=== PATIENT | female | born 1990 | race Caucasian/White ===

== ENCOUNTER 2017-11-02 23:22 | Emergency (ER) | payer MEDICAID, OTHER | END 2017-11-03 00:05 | disposition home or self-care (01) | LOC: FTE 23:22 | DX: R23.8 Other skin changes (principal); Z87.891 Personal history of nicotine dependence | CPT/HCPCS: 99283; Z7502 ==

== ENCOUNTER 2018-06-30 08:27 | Inpatient (IN) | payer SELFPAY, MEDICAID ==
[2018-06-30 09:08] LABS: ADD MAN DIFF? NO
[2018-06-30 09:11] LABS: BASOPHIL # 0.1 10^3/ul (0.0-0.1); BASOPHILS % 0.3 % (0.0-2.0); HEMATOCRIT 38.2 % (37.0-47.0); HEMOGLOBIN 12.8 g/dl (12.0-16.0); LYMPHOCYTES # 1.4 10^3/ul (0.8-2.9); MEAN CORPUSCULAR HGB CONC 33.5 g/dl (32.0-37.0); MEAN CORPUSCULAR VOLUME 89.5 fl (82.0-101.0); MEAN PLATELET VOLUME 9.9 fl (7.4-10.4); MONOCYTE # 0.9 10^3/ul (0.3-0.9); MONOCYTES % 5.4 % (0.0-11.0); NEUTROPHIL # 13.2 10^3/ul (1.6-7.5); NEUTROPHILS % 84.6 % (39.0-77.0); PLATELET COUNT 332 10^3/UL (140-415); RED BLOOD COUNT 4.27 10^6/ul (4.20-5.40); RED CELL DISTRIBUTION WIDTH 12.4 % (11.5-14.5)
[2018-06-30 09:11] LABS: WHITE BLOOD COUNT 15.6 10^3/ul (4.8-10.8)
[2018-06-30] MEDS: KETOROLAC 30 MG INJ IV (09:21)
[2018-06-30] MEDS: ONDANSETRON 4 MG INJ IV (09:21)
[2018-06-30] MEDS: SOD CHLORIDE 0.9% 1,000 ML IV (09:21)
[2018-06-30 09:27] LABS: ADD UMIC NO; UR ASCORBIC ACID 20 mg/dL (NEGATIVE); UR BILIRUBIN (Dip) NEGATIVE (NEGATIVE); UR BLOOD (Dip) NEGATIVE (NEGATIVE); UR CLARITY SLIGHTLY CLOUDY (CLEAR); UR COLOR YELLOW (YELLOW); UR GLUCOSE (Dip) NEGATIVE (NEGATIVE); UR KETONES (Dip) 1+ mg/dL (NEGATIVE); UR LEUKOCYTE ESTERASE (Dip) NEGATIVE Leu/ul (NEGATIVE); UR MUCUS MANY /HPF (NONE SEEN); UR NITRITE (Dip) NEGATIVE (NEGATIVE); UR RBC 1 /HPF (0-5); UR SPECIFIC GRAVITY (Dip) 1.018 (1.003-1.030); UR SQUAMOUS EPITHELIAL CELL FEW /HPF (FEW); UR TOTAL PROTEIN (Dip) NEGATIVE (NEGATIVE); UR UROBILINOGEN (Dip) NEGATIVE (NEGATIVE); UR WBC 1 /HPF (0-5)
[2018-06-30 09:31] LABS: ALANINE AMINOTRANSFERASE 21 IU/L (13-69); ALBUMIN 4.7 g/dl (3.3-4.9); ALBUMIN/GLOBULIN RATIO 1.51; ALKALINE PHOSPHATASE 84 IU/L (42-121); ANION GAP 12 (5-13); ASPARTATE AMINO TRANSFERASE 23 IU/L (15-46); BILIRUBIN,INDIRECT 0.9 mg/dl (0-1.1); BILIRUBIN,TOTAL 0.9 mg/dl (0.2-1.3); BLOOD UREA NITROGEN 14 mg/dl (7-20); CALCIUM 9.4 mg/dl (8.4-10.2); CARBON DIOXIDE 24 mmol/L (21-31); CHLORIDE 105 mmol/L (97-110); CREATININE 0.67 mg/dl (0.44-1.00); Estimated GFR > 60 mL/min (>60); GLUCOSE 118 mg/dl (70-220); LIPASE 66 U/L (23-300); POTASSIUM 4.1 mmol/L (3.5-5.1); SODIUM 141 mmol/L (135-144); TOTAL PROTEIN 7.8 g/dl (6.1-8.1)
[2018-06-30] MEDS: IOHEXOL 300MG/ML 150 ML BTL (10:47)
[2018-06-30] MEDS: SOD CHLORIDE 0.9% 100 ML (10:48)
[2018-06-30] MEDS: morphine 4 MG/ML VIAL IV (11:49)
[2018-06-30] MEDS ORDERED: NACL 0.9% 3 ML SYG IV (12:30)
[2018-06-30] MEDS ORDERED: ACETAMINOPHEN 325 MG TAB PO ×2 (12:30)
[2018-06-30] MEDS ORDERED: ONDANSETRON 4 MG INJ IV ×2 (12:30)
[2018-06-30] MEDS: DEXTROSE 5%-0.45% NACL 1,000 ML IV (15:46)
[2018-06-30 16:39] LABS: HEMATOCRIT 28.3 % (37.0-47.0); HEMOGLOBIN 9.5 g/dl (12.0-16.0)
[2018-06-30] MEDS: morphine 2 MG INJ IV (17:56)
[2018-06-30 19:27] LABS: ADD MAN DIFF? NO
[2018-06-30 19:30] LABS: BASOPHILS % 0.3 % (0.0-2.0); EOSINOPHILS % 0.1 % (0.0-7.0); HEMATOCRIT 26.2 % (37.0-47.0); HEMOGLOBIN 8.7 g/dl (12.0-16.0); LYMPHOCYTES # 2.4 10^3/ul (0.8-2.9); LYMPHOCYTES % 19.8 % (15.0-51.0); MEAN CORPUSCULAR HGB CONC 33.2 g/dl (32.0-37.0); MEAN CORPUSCULAR VOLUME 90.3 fl (82.0-101.0); MEAN PLATELET VOLUME 10.1 fl (7.4-10.4); MONOCYTES % 8.3 % (0.0-11.0); NEUTROPHIL # 8.5 10^3/ul (1.6-7.5); PLATELET COUNT 236 10^3/UL (140-415); RED CELL DISTRIBUTION WIDTH 12.5 % (11.5-14.5)
[2018-06-30] MEDS: HYDROCODONE/APAP (5/325) TAB PO (19:33)
[2018-06-30] MEDS: FAMOTIDINE 20 MG INJ IV (21:53)
[2018-06-30 22:06] LABS: HEMATOCRIT 24.9 % (37.0-47.0); HEMOGLOBIN 8.4 g/dl (12.0-16.0)
[2018-07-01] MEDS: DEXTROSE 5%-0.45% NACL 1,000 ML IV ×2 (02:05→13:34)
[2018-07-01 06:38] LABS: HEMATOCRIT 22.4 % (37.0-47.0); HEMOGLOBIN 7.6 g/dl (12.0-16.0)
[2018-07-01] MEDS: FAMOTIDINE 20 MG INJ IV ×2 (09:00→20:29)
[2018-07-01] MEDS ORDERED: ROPIVACAINE 0.5 % 30 ML VIAL (10:26)
[2018-07-01] MEDS ORDERED: MIDAZOLAM 1 MG/ML 2 ML INJ (10:27)
[2018-07-01] MEDS ORDERED: FENTAnyl 50 MCG/ML VIAL (10:27)
[2018-07-01 10:58] LABS: IMMEDIATE SPIN CROSSMATCH 1 2
[2018-07-01] MEDS ORDERED: HYDROmorphONE 1 MG/5 ML IV SYRINGE IV ×2 (12:00)
[2018-07-01] MEDS ORDERED: OXYCODONE/ACETAMINOPHEN (5/325) TAB PO ×2 (12:00→12:30)
[2018-07-01] MEDS ORDERED: DIPHENHYDRAMINE 50 MG INJ IV (12:00)
[2018-07-01] MEDS ORDERED: EPHEDrine SULFATE 50 MG/5 ML SYG IV (12:00)
[2018-07-01] MEDS ORDERED: METOCLOPRAMIDE 10 MG INJ IV (12:00)
[2018-07-01] MEDS ORDERED: FENTAnyl 50 MCG/ML VIAL IV ×3 (12:00)
[2018-07-01] MEDS ORDERED: MEPERIDINE 25 MG INJ IV (12:00)
[2018-07-01] MEDS ORDERED: ONDANSETRON 4 MG INJ IV (12:00)
[2018-07-01 12:39] LABS: ADD MAN DIFF? NO
[2018-07-01 12:40] LABS: WHITE BLOOD COUNT 9.6 10^3/ul (4.8-10.8)
[2018-07-01 12:40] LABS: BASOPHILS % 0.3 % (0.0-2.0); EOSINOPHILS % 0.3 % (0.0-7.0); HEMATOCRIT 31.1 % (37.0-47.0); HEMOGLOBIN 10.1 g/dl (12.0-16.0); LYMPHOCYTES # 2.1 10^3/ul (0.8-2.9); LYMPHOCYTES % 21.5 % (15.0-51.0); MEAN CORPUSCULAR HEMOGLOBIN 29.7 pg (29.0-33.0); MEAN CORPUSCULAR HGB CONC 32.5 g/dl (32.0-37.0); MEAN CORPUSCULAR VOLUME 91.5 fl (82.0-101.0); MEAN PLATELET VOLUME 9.9 fl (7.4-10.4); MONOCYTE # 1.1 10^3/ul (0.3-0.9); MONOCYTES % 11.3 % (0.0-11.0); NEUTROPHIL # 6.3 10^3/ul (1.6-7.5); PLATELET COUNT 180 10^3/UL (140-415); RED CELL DISTRIBUTION WIDTH 13.2 % (11.5-14.5)
[2018-07-01] MEDS: HYDROmorphONE 1 MG/5 ML IV SYRINGE IV (12:55)
[2018-07-01 13:00] LABS: INR 1.27; PARTIAL THROMBOPLASTIN TIME 34.4 Sec (23.0-35.0); PT RATIO 1.3
[2018-07-01 16:47] LABS: WHITE BLOOD COUNT 12.4 10^3/ul (4.8-10.8)
[2018-07-01 16:47] LABS: ABNORMAL IP MESSAGE 1; HEMATOCRIT 32.6 % (37.0-47.0); HEMOGLOBIN 10.8 g/dl (12.0-16.0); MEAN CORPUSCULAR HEMOGLOBIN 29.7 pg (29.0-33.0); MEAN CORPUSCULAR HGB CONC 33.1 g/dl (32.0-37.0); MEAN CORPUSCULAR VOLUME 89.6 fl (82.0-101.0); PLATELET COUNT 186 10^3/UL (140-415); RED BLOOD COUNT 3.64 10^6/ul (4.20-5.40); RED CELL DISTRIBUTION WIDTH 12.9 % (11.5-14.5)
[2018-07-01 16:50] LABS: ADD MAN DIFF? YES; POSITIVE DIFF @See below
[2018-07-01] MEDS: HYDROCODONE/APAP (5/325) TAB PO (16:51)
[2018-07-01 17:21] LABS: ANISOCYTOSIS 1+ (0-0); LYMPHOCYTES #M 0.1 10^3/ul (0.8-2.9); LYMPHOCYTES % (M) 1 % (15-51); MONOCYTE #M 0.3 10^3/ul (0.3-0.9); MONOCYTES % (M) 3 % (0-11); PLATELET ESTIMATE NORMAL; SEGMENTED NEUTROPHILS (M) % 96 % (39-77); SMUDGE%M 2 % (0-0)
[2018-07-02] MEDS: DEXTROSE 5%-0.45% NACL 1,000 ML IV (02:25)
[2018-07-02 05:30] LABS: ADD MAN DIFF? NO
[2018-07-02 05:35] LABS: WHITE BLOOD COUNT 10.9 10^3/ul (4.8-10.8)
[2018-07-02 05:35] LABS: BASOPHILS % 0.2 % (0.0-2.0); EOSINOPHILS % 0.2 % (0.0-7.0); HEMATOCRIT 27.1 % (37.0-47.0); LYMPHOCYTES # 1.7 10^3/ul (0.8-2.9); LYMPHOCYTES % 15.7 % (15.0-51.0); MEAN CORPUSCULAR HEMOGLOBIN 29.7 pg (29.0-33.0); MEAN CORPUSCULAR HGB CONC 33.2 g/dl (32.0-37.0); MEAN CORPUSCULAR VOLUME 89.4 fl (82.0-101.0); MONOCYTE # 1.2 10^3/ul (0.3-0.9); MONOCYTES % 10.6 % (0.0-11.0); NEUTROPHILS % 72.8 % (39.0-77.0); PLATELET COUNT 163 10^3/UL (140-415); RED BLOOD COUNT 3.03 10^6/ul (4.20-5.40); RED CELL DISTRIBUTION WIDTH 13.1 % (11.5-14.5)
[2018-07-02] MEDS: INFLUENZA VIRUS VACCINE 0.5 ML (DISPENSING) IM* (09:14)
[2018-07-02] MEDS: FAMOTIDINE 20 MG INJ IV (09:14)
== END 2018-07-02 13:00 | disposition home or self-care (01) | DRG 742 ==
LOC: FTE 08:27 → PP2 12:29
PROC: 0UB24ZZ Excision of Bilateral Ovaries, Percutaneous Endoscopic Approach (ICD-10-PCS; principal; 2018-07-01 10:30)
PROC: 30233N1 Transfusion of Nonautologous Red Blood Cells into Peripheral Vein, Percutaneous Approach (ICD-10-PCS; 2018-07-01 10:30)
DX: N83.202 Unspecified ovarian cyst, left side (principal); K66.1 Hemoperitoneum; N83.201 Unspecified ovarian cyst, right side; D72.829 Elevated white blood cell count, unspecified
CPT/HCPCS: 36415; 36430; 74177; 76856; 80053; 81001; 81003; 81025; 83690; 85014; 85018; 85025; 85610; 85730; 86850; 86900; 86901; 86920; 88305; 90686; 96361; 96374; 96375; 99285-25